=== PATIENT | male | born 1955 | race Caucasian/White ===

== ENCOUNTER → 2024-07-21 | Outpatient (CLI) | payer MEDICARE, OTHER | LOC: VAS 16:03 → RAD 16:30 | DX: M79.89 Other specified soft tissue disorders (principal); R89.1 Abnormal level of hormones in specimens from other organs, systems and tissues ==

== ENCOUNTER → 2024-07-29 | Outpatient (REF) | payer MEDICARE, OTHER ==
[2024-07-29 08:28] LABS: CALCIUM 9.1 mg/dL (8.3-10.5)
== END ==
LOC: LAB 07:52
PROVIDERS: Nurse Practitioner
DX: M79.89 Other specified soft tissue disorders (principal)

== ENCOUNTER → 2024-10-07 | Outpatient (REF) | payer MEDICARE, OTHER | LOC: LAB 05:20 | DX: F03.90 Unspecified dementia, unspecified severity, without behavioral disturbance, psychotic disturbance, mood disturbance, and anxiety (principal) ==

== ENCOUNTER → 2024-10-28 | Outpatient (REF) | payer MEDICARE, OTHER | LOC: LAB 07:27 | DX: G31.83 Neurocognitive disorder with Lewy bodies (principal) ==